=== PATIENT | female | born 1990 | race Caucasian/White ===

== ENCOUNTER 2022-03-09 00:08 | Emergency (ER) | payer OTHER, BC ==
[~2022-03-09] VITALS: Ht 154.9 cm; Wt 59.1 kg
[2022-03-09 00:19] VITALS: BP 127/77
--- NOTE | 2022-03-09 00:30 | NUR ---
wound cleaned with 100ml nacl
== END 2022-03-09 02:23 | disposition home or self-care (01) ==
LOC: ER 00:09
DX: S01.111A Laceration without foreign body of right eyelid and periocular area, initial encounter (principal); Z72.89 Other problems related to lifestyle; V87.7XXA Person injured in collision between other specified motor vehicles (traffic), initial encounter; Y93.89 Activity, other specified; Y92.89 Other specified places as the place of occurrence of the external cause; Y99.8 Other external cause status
CPT/HCPCS: 12013; 99282; A6449